=== PATIENT | male | born 1980 | race African-American/Black ===

== ENCOUNTER 2018-06-23 09:53 | Outpatient (CLI) ==
[2015-08-26 01:10] VITALS: BMI 39.0
--- NOTE | 2018-06-23 11:02 | CT ---
EXAM: CT of the chest with contrast History: Midsternal pain, chest pain. Comparison: Chest radiograph 10/01/2013 Technique: Multiplanar CT images through the thorax were obtained following administration of IV con trast Findings: Heart size is normal. No pericardial effusion. Great vessels are unremarkable. No patho logically enlarged thoracic lymph nodes. Calcified lymph nodes are seen within the right hilum. No consolidation. No pleural fluid and no pneumothorax. No suspicious lung masses or lung nodules. The re are a few coronary calcifications. Within the visualized upper abdomen, no acute findings. No acute osseous abnormalities. Impression: 1. No acute intrathoracic process. 2. Coronary calcifications.
== END 2018-06-23 09:54 | disposition home or self-care (01) ==
LOC: RAD 09:53
PROVIDERS: ATTEND Nurse Practitioner Family
DX: R07.9 Chest pain, unspecified (principal)

== ENCOUNTER 2018-08-14 23:38 | Emergency (ER) ==
[2018-08-14 23:46] VITALS: TEMP 97.6; BMI 42.9
--- NOTE | 2018-08-15 00:35 | CT ---
Exam: CT of the chest without contrast History: Cough Technique: [address] of the chest FINDINGS: The lung windows show no pulmonary parenchymal abnormalities. No pleural fluid or pneumot horax. The heart, great vessels and pericardium appear normal by noncontrast CT. Granulomatous lymp h node calcifications of the right hilum. No pathologic lymph node enlargement or abundance of the m ediastinum. No acute findings of the chest wall soft tissues or bony thorax. Prior healed left post erior rib fractures. No acute findings of the upper abdomen. Impression: 1. No acute abnormality of the chest.
--- NOTE | 2018-08-15 00:56 | ED.PDOC ---
General ED Provider: Dr. SHOSHANA CHILDRESS-ER Chief Complaint: Respiratory Complaint Stated Complaint: my sinuses are draining Time Seen by Physician: 23:40 Mode of Arrival: Walk-In Information Source: Patient Exam Limitations: No limitations Primary Care Provider: MARIA DE JESUS RIVERA Nursing and Triage Documentation Reviewed and Agree: Yes Does patient meet sepsis criteria?: No System Inflammatory Response Syndrome: Not Applicable Sepsis Protocol: For patient's 13 years and over: Temp is 96.8 and below OR 101 and greater Pulse >90 BPM Resp >20/minute Acutely Altered Mental Status Are patient's symptoms suggestive of a new infection, such as: -Pneumonia -Skin, Soft Tissue -Endocarditis -UTI -Bone, Joint Infection -Implantable Device -Acute Abdominal Infection -Wound Infection -Meningitis -Blood Stream Catheter Infection -Unknown Respiratory Complaint Exam - Respiratory Complaint/Exam Onset/Duration: 3 days Symptoms Are: Still present Initial Severity: Mild Current Severity: Mild Location: Chest Character: Reports: Productive cough Aggravating: Reports: URI Alleviating: Denies: Nasal suction Associated Signs and Symptoms: Reports: URI, Nasal congestion. Denies: Rapid breathing, Dyspnea, Chills, Chest pain Tuberculosis Risk Factors: Reports: None Status Asthmaticus Risk Factors: Reports: None Home Oxygen Use: No Recent Stress Test: No Recent Echo/LV Function: No Current Antibiotic Use: No Current Asthma Medication Use: No Respiratory Distress: None Dysphagia Present: No Stridor Present: No JVD Present: No Accessory Muscle Use: No Review of Systems - Review Of Systems Constitutional: Reports: No symptoms Eyes: Reports: No symptoms Ears, Nose, Mouth, Throat: Reports: Nose discharge Respiratory: Reports: Cough Cardiac: Reports: No symptoms GI: Reports: No symptoms : Reports: No symptoms Musculoskeletal: Reports: No symptoms Skin: Reports: No symptoms Neurological: Reports: No symptoms Endocrine: Reports: No symptoms Hematologic/Lymphatic: Reports: No symptoms All Other Systems: Reviewed and Negative Past Medical History - Past Medical History Previously Healthy: Yes Endocrine: Reports: None Cardiovascular: Reports: Hypertension Respiratory: Reports: None Hematological: Reports: None Gastrointestinal: Reports: None Genitourinary: Reports: None Neuro/Psych: Reports: None Musculoskeletal: Reports: None Cancer: Reports: None - Surgical History General Surgical History: Reports: None - Family History Family History: Reports: None - Social History Smoking Status: Former smoker Hx Substance Use: No Alcohol Screening: Occasionally - Immunizations Tetanus Shot up to Date: Yes Physical Exam - Physical Exam Appearance: Well-appearing, No pain distress, Well-nourished Eyes: EDMUND, EOMI, Conjunctiva clear ENT: Rhinorrhea Neck: Supple Respiratory: Airway patent Cardiovascular: RRR, Pulses normal, No rub, No murmur GI/: Soft Musculoskeletal: Normal strength, ROM intact, No edema, No calf tenderness Skin: Warm, Dry, Normal color Neurological: Sensation intact, Motor intact, Reflexes intact, Cranial nerves intact, Alert, Oriented Psychiatric: Affect appropriate, Mood appropriate Interpretation - Radiology Interpretation Radiology Interpretation By: Radiologist Radiology Results: Negative Exam Interpreted: CT Scan Critical Care Note - Critical Care Note Total Time (mins): 0 Course - Course Hematology/Chemistry: 08/15/18 00:25 08/15/18 00:25 Orders, Labs, Meds: Lab Review 08/15/18 08/15/18 08/15/18 00:10 00:25 00:25 WBC 8.51 RBC 4.80 Hgb 14.8 Hct 42.4 MCV 88.3 MCH 30.8 MCHC 34.9 RDW Coeff of Claudia 13.5 Plt Count 291 Immature Gran % (Auto) 0.7 Neut % (Auto) 42.4 Lymph % (Auto) 42.1 [place] % (Auto) 9.6 Eos % (Auto) 4.1 Baso % (Auto) 1.1 Immature Gran # (Auto) 0.1 Neut # (Auto) 3.6 Lymph # (Auto) 3.6 H [place] # (Auto) 0.8 Eos # (Auto) 0.4 Baso # (Auto) 0.1 Sodium 136.9 Potassium 3.48 L Chloride 103.1 Carbon Dioxide 26.0 Anion Gap 11.28 BUN 19.6 Creatinine 0.92 Estimated GFR (MDRD) 110.00 BUN/Creatinine Ratio 21.30 Glucose 175.2 H Lactic Acid Calcium 9.23 Total Bilirubin 0.33 AST 22.3 ALT 21.4 Alkaline Phosphatase 100.9 Total Protein 7.50 Albumin 4.34 Globulin 3.16 Albumin/Globulin Ratio 1.37 Influ A Molecular Assay Negative by naat Influ B Molecular Assay Negative by naat 08/15/18 00:25 WBC RBC Hgb Hct MCV MCH MCHC RDW Coeff of Claudia Plt Count Immature Gran % (Auto) Neut % (Auto) Lymph % (Auto) [place] % (Auto) Eos % (Auto) Baso % (Auto) Immature Gran # (Auto) Neut # (Auto) Lymph # (Auto) [place] # (Auto) Eos # (Auto) Baso # (Auto) Sodium Potassium Chloride Carbon Dioxide Anion Gap BUN Creatinine Estimated GFR (MDRD) BUN/Creatinine Ratio Glucose Lactic Acid 1.29 Calcium Total Bilirubin AST ALT Alkaline Phosphatase Total Protein Albumin Globulin Albumin/Globulin Ratio Influ A Molecular Assay Influ B Molecular Assay Orders Category Date Time Status EKG-(ED ONLY) Stat CARDIO 08/15/18 00:06 Completed BLOOD CULTURE (ED ONLY) Stat LAB 08/15/18 00:25 Received CBC W/ AUTO DIFF Stat LAB 08/15/18 00:25 Completed COMPREHENSIVE METABOLIC PANEL Stat LAB 08/15/18 00:25 Completed FLU A/B MOLECULAR Stat LAB 08/15/18 00:10 Completed LACTIC ACID Stat LAB 08/15/18 00:25 Completed MOLECULAR GROUP A STREP Stat LAB 08/15/18 00:10 Completed PROCALCITONIN Stat LAB 08/15/18 00:25 Received URINALYSIS C & S IF INDICATED Stat LAB 08/15/18 00:[address] CHEST W/O CONTRAST Stat RADS 08/15/18 00:07 Completed Vital Signs: Temp Pulse Resp BP Pulse Ox 08/14/18 23:38 97.6 F 113 H 28 H 164/116 H 94 L Departure - Departure Time of Disposition: 00:55 Disposition: HOME SELF-CARE Discharge Problem: Sinusitis Qualifiers: Sinusitis location: unspecified location Chronicity: acute Recurrence: non- recurrent Qualified Code(s): J01.90 - Acute sinusitis, unspecified Instructions: Rhinosinusitis (ED) Condition: Good Pt referred to PMD for follow-up: Yes IPMP verified?: No Additional Instructions: augmentin 875mg bid x 10 days----tessalon perles 200mg tid prn cough #30---f/u with pcp Allergies/Adverse Reactions: Allergies No Known Allergies Allergy (Verified 08/14/18 23:45) Home Medications: Ambulatory Orders Losartan/Hydrochlorothiazide [Losartan-Hctz 100-25 Mg Tab] 1 each PO DAILY 08/10 Amlodipine Besylate 5 mg PO DAILY 08/14/18 Disposition Discussed With: Patient, Family
[2018-08-15 01:05] VITALS: BP 163/104
== END 2018-08-15 01:04 | disposition home or self-care (01) ==
LOC: ED 23:38
DX: J01.90 Acute sinusitis, unspecified (principal); I10 Essential (primary) hypertension
CPT/HCPCS: 36415; 80053; 81001; 83605; 84145; 85025; 87040; 87502; 87651; 93005; 93010; 99283